=== PATIENT | female | born 1975 | race African-American/Black ===

== ENCOUNTER 2017-09-03 23:25 | Emergency (ER) | payer MEDICAID ==
[~2017-09-03] VITALS: Ht 157.5 cm; Wt 61.3 kg
[~2017-09-03 23:25] MED LIST: KEPP500 PO; LEVO500T2 PO
[2017-09-04 06:28] VITALS: BP 152/101
== END 2017-09-04 06:47 | disposition home or self-care (01) ==
LOC: ER 09-04 00:45
DX: H60.8X3 Other otitis externa, bilateral (principal); R59.1 Generalized enlarged lymph nodes; I10 Essential (primary) hypertension; F17.200 Nicotine dependence, unspecified, uncomplicated; F12.10 Cannabis abuse, uncomplicated; Z90.89 Acquired absence of other organs
CPT/HCPCS: 99283

== ENCOUNTER 2017-09-29 03:27 | Emergency (ER) | payer MEDICAID, OTHER ==
[~2017-09-29] VITALS: Ht 157.5 cm; Wt 61.0 kg
[2017-09-29 07:14] VITALS: BP 166/89
== END 2017-09-29 07:09 | disposition home or self-care (01) ==
LOC: ER 03:38
DX: L65.9 Nonscarring hair loss, unspecified (principal); L29.9 Pruritus, unspecified; G40.909 Epilepsy, unspecified, not intractable, without status epilepticus; F17.210 Nicotine dependence, cigarettes, uncomplicated; F12.90 Cannabis use, unspecified, uncomplicated; F29 Unspecified psychosis not due to a substance or known physiological condition; Z90.49 Acquired absence of other specified parts of digestive tract; Z90.89 Acquired absence of other organs
CPT/HCPCS: 99283; Z7610

== ENCOUNTER 2018-05-09 15:57 | Emergency (ER) | payer MEDICAID, OTHER ==
[~2018-05-09] VITALS: Ht 157.5 cm; Wt 67.0 kg
[2018-05-09 16:57] LABS: CLARITY URINE CLOUDY (CLEAR); COLOR URINE YELLOW (YELLOW); KETONES URINE NEGATIVE (NEGATIVE); LEUKOCYTE ESTERASE URINE 3+ (NEGATIVE); NITRITE URINE NEGATIVE (NEGATIVE); OCCULT BLOOD URINE NEGATIVE (NEGATIVE); PH URINE 6.5 (4.5-8.0); PROTEIN URINE NEGATIVE (NEGATIVE); SPECIFIC GRAVITY URINE 1.016 (1.005-1.030)
[2018-05-09] MEDS ORDERED: MORPHINE SULFATE 4 MG/ML CPJ (NOT FOR IM USE) IV STA (23:53)
[2018-05-09] MEDS ORDERED: SODIUM CHLORIDE 0.9% 1,000 ML IV ONE (23:53)
[2018-05-09] MEDS ORDERED: ONDANSETRON HCL 4MG/2ML INJ IV STA (23:53)
[2018-05-10] MEDS ORDERED: CEFTRIAXONE 1 G PREMIX 50 ML IV ONE
[2018-05-10 00:10] LABS: BASOPHILS % 0.6 % (0.0-2.0); EOSINOPHILS % 0.5 % (0.0-5.0); HEMATOCRIT. 33.1 % (36.0-48.0); LYMPHOCYTES % 10.8 % (20.0-50.0); MEAN CORPUSCULAR HEMOGLOBIN 27.5 pg (28.0-32.0); MEAN CORPUSCULAR VOLUME 82.5 fL (81.0-99.0); MEAN PLATELET VOLUME 9.5 fl (7.4-10.4); MONOCYTES % 7.8 % (2.0-8.0); NEUTROPHILS % 80.3 % (40.0-76.0); PLATELET 268 x1000/uL (130-400); RED BLOOD CELL COUNT 4.01 mill/uL (4.2-5.4); RED CELL DISTRIBUTION WIDTH 13.8 % (11.6-14.6)
[2018-05-10 00:43] LABS: CHLORIDE 101 mEq/L (98-107)
[2018-05-10 03:16] VITALS: BP 101/68
== END 2018-05-10 03:34 | disposition home or self-care (01) ==
LOC: ER 15:57
DX: N83.202 Unspecified ovarian cyst, left side (principal); N83.201 Unspecified ovarian cyst, right side; D25.9 Leiomyoma of uterus, unspecified; N39.0 Urinary tract infection, site not specified; F17.210 Nicotine dependence, cigarettes, uncomplicated; F12.90 Cannabis use, unspecified, uncomplicated; F15.10 Other stimulant abuse, uncomplicated
CPT/HCPCS: 36415; 74176; 76830; 76856; 80053; 81003; 81025; 83690; 85025; 93005; 96365; 96375; 99284; J0696; J2270; J2405; J7030

== ENCOUNTER 2020-10-13 10:35 | Emergency (ER) | payer MEDICAID, OTHER ==
[~2020-10-13] VITALS: Ht 165.1 cm; Wt 54.0 kg
[2020-10-13] MEDS ORDERED: LEVETIRACETAM 500MG PREMIX 100 ML IV ONE (14:00)
[2020-10-13 14:34] LABS: CHLORIDE 108 mEq/L (98-107)
[2020-10-13 14:39] LABS: ETHANOL BLOOD < 10 mg/dL
[2020-10-13 14:47] LABS: HCG SCREEN NEGATIVE
[2020-10-13 15:32] LABS: EOSINOPHILS % 3.3 % (0.0-5.0); HEMATOCRIT. 34.4 % (36.0-48.0); HEMOGLOBIN. 11.2 g/dL (12.0-16.0); MEAN CORPUSCULAR VOLUME 85.6 fL (81.0-99.0); MEAN PLATELET VOLUME 11.1 fl (7.4-10.4); MONOCYTES % 8.5 % (2.0-8.0); NEUTROPHILS % 56.2 % (40.0-76.0); PLATELET 157 x1000/uL (130-400); RED BLOOD CELL COUNT 4.01 mill/uL (4.2-5.4); RED CELL DISTRIBUTION WIDTH 14.3 % (11.6-14.6)
[2020-10-13] MEDS ORDERED: CARB200C7 MT (16:28)
[2020-10-13 16:55] LABS: *BARBITURATES SCREEN URINE NEGATIVE (NEGATIVE); *BENZODIAZEPINES SCREEN URINE NEGATIVE (NEGATIVE); *COCAINE SCREEN URINE NEGATIVE (NEGATIVE); METHADONE URINE SCREEN NEGATIVE (NEGATIVE); OPIATES URINE SCREEN NEGATIVE (NEGATIVE)
[2020-10-13 16:56] LABS: PHENCYCLIDINE URINE SCREEN NEGATIVE (NEGATIVE)
[2020-10-13 16:58] LABS: *AMPHETAMINES SCREEN URINE PRESUMTIVE POSITIVE (NEGATIVE); CANNABINOID URINE SCREEN PRESUMTIVE POSITIVE (NEGATIVE)
[2020-10-13 17:06] VITALS: BP 147/103
== END 2020-10-13 17:19 | disposition home or self-care (01) ==
LOC: ER 10:35
DX: R55 Syncope and collapse (principal); G40.909 Epilepsy, unspecified, not intractable, without status epilepticus; R51.9 Headache, unspecified; M54.2 Cervicalgia; D64.9 Anemia, unspecified; Y08.89XA Assault by other specified means, initial encounter; Y93.89 Activity, other specified; Y92.89 Other specified places as the place of occurrence of the external cause; F12.90 Cannabis use, unspecified, uncomplicated; F15.90 Other stimulant use, unspecified, uncomplicated
CPT/HCPCS: 36415; 70450; 80053; 80305; 80320; 81025; 84703; 85025; 93005; 96365; 99285; J1953; G0480

== ENCOUNTER 2021-08-06 00:51 | Emergency (ER) | payer MEDICAID, OTHER ==
[~2021-08-06] VITALS: Ht 167.6 cm; Wt 84.0 kg
[~2021-08-06 00:51] MED LIST changes: +CARB200C7 MT
[2021-08-06] MEDS ORDERED: ACETAMINOPHEN 325MG TABLET PO ONE (05:30)
[2021-08-06 05:45] VITALS: BP 144/91
== END 2021-08-06 05:51 | disposition home or self-care (01) ==
LOC: ER 00:51
DX: T43.621A Poisoning by amphetamines, accidental (unintentional), initial encounter (principal); F15.129 Other stimulant abuse with intoxication, unspecified; R41.82 Altered mental status, unspecified; R03.0 Elevated blood-pressure reading, without diagnosis of hypertension; G40.909 Epilepsy, unspecified, not intractable, without status epilepticus; Y92.89 Other specified places as the place of occurrence of the external cause; Z79.899 Other long term (current) drug therapy
CPT/HCPCS: 99283

== ENCOUNTER 2023-02-10 13:46 | Emergency (ER) | payer MEDICAID ==
[~2023-02-10] VITALS: Ht 165.1 cm; Wt 72.0 kg
[2023-02-10] MEDS ORDERED: IPRATROPIUM BROMIDE (0.02%) 0.5MG/2.5ML NEB HHN STA (14:28)
[2023-02-10] MEDS ORDERED: DEXAMETHASONE 4MG TABLET PO ONE (14:30)
[2023-02-10 14:58] VITALS: BP 143/93; TEMP 98.2
[2023-02-10] MEDS: ALBUTEROL (0.083%) 2.5MG/3ML NEB HHN SCH ×3 (15:00→16:25)
[2023-02-10] MEDS ORDERED: IPRATROPIUM BROMIDE (0.02%) 0.5MG/2.5ML NEB ONE (16:23)
[2023-02-10 16:25] VITALS: PULSE 98; RESP 20; O2SAT 95
== END 2023-02-10 18:00 | disposition home or self-care (01) ==
LOC: ER 13:46
DX: J44.1 Chronic obstructive pulmonary disease with (acute) exacerbation (principal); B34.9 Viral infection, unspecified; F12.10 Cannabis abuse, uncomplicated; I10 Essential (primary) hypertension; Z98.890 Other specified postprocedural states; Z90.49 Acquired absence of other specified parts of digestive tract; Z86.59 Personal history of other mental and behavioral disorders
CPT/HCPCS: 71045; 94640; 99283; J8540; Z7610 ×3

== ENCOUNTER 2024-06-22 14:07 | Emergency (ER) | payer MEDICAID ==
[~2024-06-22] VITALS: Ht 157.5 cm; Wt 79.3 kg
[2024-06-22 14:17] VITALS: TEMP 36.6
[2024-06-22] MEDS: DEXAMETHASONE 1MG TABLET PO ONE (14:45)
[2024-06-22] MEDS: DEXAMETHASONE 4MG TABLET PO SCH (15:02)
[2024-06-22 15:33] VITALS: PULSE 97; RESP 22; O2SAT 96
[2024-06-22] MEDS: ALBUTEROL (0.083%) 2.5MG/3ML NEB HHN SCH (15:33)
[2024-06-22] MEDS: IPRATROPIUM BROMIDE (0.02%) 0.5MG/2.5ML NEB HHN STA (15:34)
[2024-06-22 16:36] VITALS: BP 145/92; PULSE 107; RESP 18; O2SAT 100
== END 2024-06-22 16:50 | disposition home or self-care (01) ==
LOC: ER 14:21
DX: J44.1 Chronic obstructive pulmonary disease with (acute) exacerbation (principal); J45.901 Unspecified asthma with (acute) exacerbation; I10 Essential (primary) hypertension; F15.90 Other stimulant use, unspecified, uncomplicated; Z90.49 Acquired absence of other specified parts of digestive tract
CPT/HCPCS: 71045; 94644; 99291; J8540; Z7610 ×3; 94640; 94664